=== PATIENT | female | born 1960 | race Two or more races ===

== ENCOUNTER 2021-10-07 17:20 | Emergency (ER) | payer OTHER ==
[~2021-10-07] VITALS: Ht 162.6 cm; Wt 111.1 kg
[2021-10-07] MEDS ORDERED: GLUMETZA500 MG PO (17:46)
[2021-10-07] MEDS ORDERED: PEPCID AC20 MG PO (19:52)
[2021-10-07] MEDS ORDERED: CIPRO500 MG PO (19:52)
== END 2021-10-07 20:07 | disposition home or self-care (01) ==
LOC: ER 17:20
DX: R19.7 Diarrhea, unspecified (principal); I10 Essential (primary) hypertension; E11.9 Type 2 diabetes mellitus without complications; Z79.84 Long term (current) use of oral hypoglycemic drugs; Z88.8 Allergy status to other drugs, medicaments and biological substances